=== PATIENT | female | born 1985 | race Caucasian/White ===

== ENCOUNTER 2020-08-19 21:23 | Emergency (ER) | payer OTHER, SELFPAY ==
[2020-08-19 21:31] VITALS: BP 128/87; PULSE 94; RESP 16; TEMP 35.9; O2SAT 98
--- NOTE | 2020-08-19 21:36 | ED.SKABFB ---
HPI - Skin/Abscess/Foreign Bdy General Chief complaint: Skin/Abscess/Foreign Body Stated complaint: Cyst on back for couple weeks Time Seen by Provider: 08/19/20 21:30 Source: patient Mode of arrival: ambulatory Limitations: no limitations History of Present Illness HPI narrative: A 34-year-old female comes into the emergency department tonight with complaints of a cyst on her back. Patient states that is been there for several weeks and will go away. She notes that it has been intermittently draining. Patient notes that it is exquisitely painful. She states that it does cause pain when she is lying on her back. Related Data Allergies Allergy/AdvReac Type Severity Reaction Status Date / Time alprazolam Allergy Unknown Unknown Verified 06/23/20 13:36 cefaclor Allergy Unknown Nausea Verified 06/23/20 13:36 lincomycin Allergy Unknown Didn't work Verified 06/23/20 13:36 nicardipine [Cardene] Allergy Unknown Didn't work Verified 06/23/20 13:36 codeine AdvReac Unknown Nausea and Verified 06/23/20 13:36 Vomiting Review of Systems Review of Systems: Narrative: CONSTITUTIONAL: Denies fever, chills, or sweats. EYES: Denies visual changes, redness, or discharge. ENT: Denies rhinorrhea, congestion, sore throat, or otalgia. CARDIOVASCULAR: Denies chest pain, palpitations, or edema. RESPIRATORY: Denies cough or dyspnea. GASTROINTESTINAL: Denies abdominal pain, nausea, vomiting, or diarrhea. GENITOURINARY: Denies dysuria or hematuria. SKIN: Denies rash or itching. MUSCULOSKELETAL: Denies back pain, joint pain, or myalgia. NEUROLOGIC: Denies headache, numbness, dizziness, or weakness. PSYCHIATRIC: Denies anxiety or depression. [facility] Past Medical History Medical History (Updated 08/19/20 @ 21:56 by Toro Mejia DO) Ankle fracture, left Anxiety Arm fracture Asthma as a child Depression Fingers fractured GERD (gastroesophageal reflux disease) Ovarian cyst Pseudoseizure Surgical History Surgical History History of hysterectomy Hx of cholecystectomy Family History Family History Mother Depression Hypertension Father Hypertension Grandparent Family history of cardiovascular disease Diabetes mellitus Family history of malignant neoplasm of breast Other Family history of allergic disorder Social History Social History Smoking status: Current every day smoker Alcohol intake: never Exam Narrative: Exam Narrative: GENERAL: Well-appearing, well-nourished, and in no acute distress. HEAD: Normocephalic, atraumatic. EYES: PERRLA and EOMI. ENT: Nares clear, no rhinorrhea or epistaxis. Mucous membranes moist. Oropharynx without tonsillar hypertrophy exudate or other lesions. Bilateral TMs pearly hartley nonbulging NECK: Supple. No adenopathy or masses. No carotid bruits or JVD CHEST: Clear to auscultation. No respiratory distress. No wheezes rales or rhonchi HEART: Regular rate and rhythm. No murmur heard. Normal peripheral pulses. ABDOMEN: Soft, nontender, nondistended, normal active bowel sounds. EXTREMITIES: Normal range of motion. No edema. SKIN: Warm, dry, no rash. 4 cm lesion on the mid back, fluctuant and indurated around the periphery. NEURO: No focal deficits. Alert and oriented x3. PSYCH: Normal mood and affect. Course Vital Signs Vital signs: Vital Signs Temperature 35.9 C L 08/19/20 21:31 Pulse Rate 94 08/19/20 21:31 Respiratory Rate 16 08/19/20 21:31 Blood Pressure 128/87 08/19/20 21:31 Pulse Oximetry 98 08/19/20 21:31 Temperature 35.9 C L 08/19/20 21:31 Pulse Rate 94 08/19/20 21:31 Respiratory Rate 16 08/19/20 21:31 Blood Pressure 128/87 08/19/20 21:31 Pulse Oximetry 98 08/19/20 21:31 Procedures Abscess I/D back: Side (if applicable): left Local Anesthetic: lidocaine 1% and w
== END 2020-08-19 21:59 | disposition home or self-care (01) ==
PROVIDERS: Emergency Provider Emergency Medicine; PCP Family Medicine
DX: L02.212 Cutaneous abscess of back [any part, except buttock and flank] (principal); J45.909 Unspecified asthma, uncomplicated; K21.9 Gastro-esophageal reflux disease without esophagitis; F17.200 Nicotine dependence, unspecified, uncomplicated
CPT/HCPCS: 10061; 99283; A9270

== ENCOUNTER 2020-10-27 15:47 | Emergency (ER) | payer OTHER, SELFPAY ==
[2020-10-27 15:57] VITALS: BP 108/62; PULSE 86; RESP 16; TEMP 36.5; O2SAT 99
--- NOTE | 2020-10-27 16:05 | ED.URI ---
HPI - URI/Sore Throat General Chief Complaint: Upper Respiratory Infection Stated Complaint: sore throat/weakness Time Seen by Provider: 10/27/20 16:05 Source: patient and RN notes reviewed Mode of arrival: ambulatory Limitations: no limitations History of Present Illness HPI Narrative: 35-year-old female presents to the [facility] with complaints of sore throat, body aches and nasal congestion. Reports that she has had a fever of 101. Symptoms for approximately 2 weeks intermittently. States that at her work she was tested for Covid last week which was negative. Has not taken anything for symptoms. Related Data Home Medications Medication Instructions Recorded Confirmed citalopram 1 mg PO DAILY 10/27/20 10/27/20 hydroxyzine HCl 1 mg PO DAILY 10/27/20 10/27/20 omeprazole 1 mg PO DAILY 10/27/20 10/27/20 Allergies Allergy/AdvReac Type Severity Reaction Status Date / Time alprazolam Allergy Unknown Unknown Verified 06/23/20 13:36 cefaclor Allergy Unknown Nausea Verified 06/23/20 13:36 lincomycin Allergy Unknown Didn't work Verified 06/23/20 13:36 nicardipine [Cardene] Allergy Unknown Didn't work Verified 06/23/20 13:36 codeine AdvReac Unknown Nausea and Verified 06/23/20 13:36 Vomiting Review of Systems Review of Systems: All systems reviewed & are unremarkable except as noted in HPI and below Constitutional: Constitutional: Reports as per HPI, Reports fatigue and Reports fever(s) Eyes: Eyes: Reports no additional eye complaints ENT: Denies dizziness, Reports nasal congestion and Reports sore throat Cardiovascular: Cardiovascular: Reports no additional cardiovascular complaints and Denies chest pain Respiratory: Respiratory: Reports no additional respiratory complaints, Denies cough, Denies dyspnea and Denies wheezing Gastrointestinal: Gastrointestinal: Reports no additional gastrointestinal complaints, Denies abdominal pain, Denies diarrhea, Denies nausea and Denies vomiting Genitourinary: Genitourinary: Reports no additional female genitourinary complaints Musculoskeletal: Musculoskeletal: Reports no additional musculoskeletal complaints Integumentary/Breasts: Skin/Breast: Reports system reviewed and no additional complaints, except as docu Neurologic: Reports system reviewed and no additional complaints, except as documented, Denies dizziness and Denies headache(s) Psychiatric: Psychiatric: Reports no additional psychiatric complaints PMFSH Past Medical History Medical History (Updated 10/28/20 @ 15:01 by Latesha Lozoya) Ankle fracture, left Anxiety Arm fracture Asthma as a child Depression Fingers fractured GERD (gastroesophageal reflux disease) Ovarian cyst Pseudoseizure Surgical History Surgical History History of hysterectomy Hx of cholecystectomy Family History Family History Mother Depression Hypertension Father Hypertension Grandparent Family history of cardiovascular disease Diabetes mellitus Family history of malignant neoplasm of breast Other Family history of allergic disorder Social History Social History Smoking status: Current every day smoker Alcohol intake: never Gender identity (if verbalized by the patient): Female Comments At the time of my signature, I reviewed and agree with the nursing past medical, surgical, social, and family history. There is no relevant family history pertinent to the patient complaint. Exam Const: General: healthy appearing, no acute distress and alert Nutritional Appearance: well nourished and obese Orientation/consciousness: patient oriented x3 HENMT: Head: normal to inspection Ears: external ears normal and TM's normal bilaterally General nose exam: Normal external nose present, Normal nares present and Nasal discharge present Face and sinus: normal facial exam and si
[2020-10-28 16:10] LABS: SARS-CoV-2 RNA PCR Negative
== END 2020-10-27 17:00 | disposition home or self-care (01) ==
PROVIDERS: Emergency Provider Nurse Practitioner; PCP Family Medicine
DX: J06.9 Acute upper respiratory infection, unspecified (principal); Z20.822 Contact with and (suspected) exposure to COVID-19; F17.200 Nicotine dependence, unspecified, uncomplicated; K21.9 Gastro-esophageal reflux disease without esophagitis; F41.9 Anxiety disorder, unspecified; F32.9 Major depressive disorder, single episode, unspecified
CPT/HCPCS: 87081; 87880; 99213; C9803; G0463; U0003; U0005

== ENCOUNTER 2021-02-24 10:08 | Emergency (ER) | payer OTHER, SELFPAY ==
--- NOTE | 2021-02-24 10:17 | ED.GENADULT ---
HPI - General Adult General Chief complaint: Upper Respiratory Infection Stated complaint: exposure Source: patient and RN notes reviewed Mode of arrival: ambulatory History of Present Illness HPI narrative: This is a family who presented to urgent care for Covid testing due to exposure to covid . No signs and symptoms of Covid noted. The patient denies SOB, CP, palpitation, extremity numbness, lightheadedness, dizziness, constipation, diarrhea, chills, or fever. They have been given a prescription to get a Covid pcr Order for Covid PCR given Related Data Home Medications Medication Instructions Recorded Confirmed omeprazole 1 mg PO DAILY 10/27/20 02/24/21 Allergies Allergy/AdvReac Type Severity Reaction Status Date / Time alprazolam Allergy Unknown Unknown Verified 02/24/21 10:40 cefaclor Allergy Unknown Nausea Verified 02/24/21 10:40 lincomycin Allergy Unknown Didn't work Verified 02/24/21 10:40 nicardipine [Cardene] Allergy Unknown Didn't work Verified 02/24/21 10:40 codeine AdvReac Unknown Nausea and Verified 02/24/21 10:40 Vomiting Review of Systems Review of Systems: A 14 organ system Review of Systems was performed and pertinent positives included in the HPI, otherwise remaining ROS is negative. [facility] Past Medical History Medical History Ankle fracture, left Anxiety Arm fracture Asthma as a child Depression Fingers fractured GERD (gastroesophageal reflux disease) Ovarian cyst Pseudoseizure Surgical History Surgical History History of hysterectomy Hx of cholecystectomy Family History Family History Mother Depression Hypertension Father Hypertension Grandparent Family history of cardiovascular disease Diabetes mellitus Family history of malignant neoplasm of breast Other Family history of allergic disorder Social History Social History Smoking status: Current every day smoker Alcohol intake: never Gender identity (if verbalized by the patient): Female Exam Narrative: GENERAL: This is a well-nourished, well-developed patient, in no apparent distress. HEAD: normocephalic, atraumatic. EYES: PERRL. Sclera clear/white. Vision is grossly intact. EARS: External ears normal, auditory canals clear and without drainage, TMs normal without perforation. Hearing grossly intact. NOSE: External nose normal with no obvious nasal discharge, nares without redness, no rhinorrhea. THROAT: Mucous membranes moist, posterior pharynx clear. NECK: Neck supple, non-tender without lymphadenopathy, masses or thyromegaly. CARDIOVASCULAR: Regular rate and rhythm without murmurs, gallops, or rubs. RESPIRATORY: Clear to auscultation. Breath sounds equal bilaterally. No wheezes, rales, or rhonchi. GASTROINTESTINAL: Abdomen soft, non-tender, nondistended. Bowel sounds are active. No hepato-splenomegaly, or palpable masses. No guarding. SKIN: warm, intact with no suspicious lesions or rash, good texture and turgor. NEURO: awake, alert, and oriented to person, place and time. There were no obvious focal neurologic abnormalities. Steady gait EXTREMITIES: Normal range of motion. No edema. No calf tenderness. Negative Homans sign bilaterally. BACK: Nontender without deformity or crepitance. No flank tenderness. Course Course Emergency Course: Order Covid testing at [place] drive-through Vital Signs Vital signs: Vital Signs Temperature 97.5 F L 02/24/21 10:35 Pulse Rate 81 02/24/21 10:35 Respiratory Rate 16 02/24/21 10:35 Blood Pressure 115/73 02/24/21 10:35 Pulse Oximetry 99 02/24/21 10:35 Temperature 97.5 F L 02/24/21 10:35 Pulse Rate 81 02/24/21 10:35 Respiratory Rate 16 02/24/21 10:35 Blood Pressure 115/73 02/24/21 10:35 Pulse Oximetry
[2021-02-24 10:35] VITALS: BP 115/73; PULSE 81; RESP 16; TEMP 36.4; O2SAT 99
== END 2021-02-24 11:03 | disposition home or self-care (01) ==
PROVIDERS: Emergency Provider Nurse Practitioner
DX: Z20.822 Contact with and (suspected) exposure to COVID-19 (principal); K21.9 Gastro-esophageal reflux disease without esophagitis; F17.200 Nicotine dependence, unspecified, uncomplicated
CPT/HCPCS: 99211; G0463

== ENCOUNTER 2021-04-21 16:35 | Emergency (ER) | payer OTHER, SELFPAY ==
--- NOTE | 2021-04-21 17:13 | PC.NURSE ---
PT LEFT PRIOR TO TRIAGE. STATES I'M GOING TO URGENT CARE. IT'S JUST A RASH
== END 2021-04-21 17:20 | disposition left against medical advice (07) ==
PROVIDERS: PCP Family Medicine
DX: Z53.21 Procedure and treatment not carried out due to patient leaving prior to being seen by health care provider (principal)
CPT/HCPCS: 99199

== ENCOUNTER 2021-04-21 17:29 | Emergency (ER) | payer OTHER, SELFPAY ==
[2021-04-21 17:38] VITALS: BP 128/85; PULSE 75; RESP 16; TEMP 36.3; O2SAT 100
[2021-04-21 17:45] VITALS: BP 128/85; PULSE 75; RESP 16; TEMP 36.3; O2SAT 100
--- NOTE | 2021-04-21 17:55 | ED.SKABFB ---
HPI - Skin/Abscess/Foreign Bdy General Chief complaint: Skin/Abscess/Foreign Body Stated complaint: R LEG SWELLING/RASH Time Seen by Provider: 04/21/21 18:06 Source: patient and RN notes reviewed Mode of arrival: ambulatory Limitations: no limitations History of Present Illness HPI narrative: 35-year-old female presents with concern for rash on her ankle. Reports she noticed the rash today after work. Reports it slightly burning, is not painful. Reports she has had this rash in the same area before and on the other ankle in the similar spot. Reports when she works on her feet her lower legs swell and then sometimes she gets this rash. Reports her legs were swollen earlier and this bleeding has improved. MD complaint: rash Related Data Home Medications Medication Instructions Recorded Confirmed omeprazole 1 mg PO DAILY 10/27/20 04/21/21 Allergies Allergy/AdvReac Type Severity Reaction Status Date / Time alprazolam Allergy Unknown Unknown Verified 04/21/21 17:45 cefaclor Allergy Unknown Nausea Verified 04/21/21 17:45 lincomycin Allergy Unknown Didn't work Verified 04/21/21 17:45 nicardipine [Cardene] Allergy Unknown Didn't work Verified 04/21/21 17:45 codeine AdvReac Unknown Nausea and Verified 04/21/21 17:45 Vomiting Review of Systems Review of Systems: CONSTITUTIONAL: Denies malaise, chills, sweats, or fever. ENT: Denies swollen lips, swollen tongue CARDIOVASCULAR: Denies chest pain, palpitations RESPIRATORY: Denies dyspnea. SKIN: Reports burning rash on the right lower anterior ankle MUSCULOSKELETAL: Denies myalgia. All systems reviewed & are unremarkable except as noted in HPI and below PMFSH Past Medical History Medical History (Updated 04/21/21 @ 18:05 by Latesha Nguyen NP) Ankle fracture, left Anxiety Arm fracture Asthma as a child Depression Fingers fractured GERD (gastroesophageal reflux disease) Ovarian cyst Pseudoseizure Surgical History Surgical History History of hysterectomy Hx of cholecystectomy Family History Family History Mother Depression Hypertension Father Hypertension Grandparent Family history of cardiovascular disease Diabetes mellitus Family history of malignant neoplasm of breast Other Family history of allergic disorder Social History Social History (Reviewed 03/28/21 @ 12:21 by Nicky Monroy [facility]) Alcohol intake: never Gender identity (if verbalized by the patient): Female Comments At time of signature, agree with nursing past medical, surgical, social and family history. There is no relevant family history pertinent to the presenting complaint Exam Narrative: GENERAL: Well-appearing, well-nourished, and in no acute distress. HEAD: Normocephalic, atraumatic. EYES: PERRLA, conjunctivae clear ENT: Mucous membranes moist. NECK: Supple. No lymphadenopathy CHEST: Clear to auscultation. No respiratory distress. HEART: Regular rate and rhythm. SKIN: Warm, dry. Patch of erythematous papules with well demarcated line at the top of the sock line noted to the right anterior ankle NEURO: Alert and oriented x3. PSYCH: Normal mood and affect Course Course Emergency Course: Patient is aware of diagnosis, understands and agrees to treatment plan. Anticipatory guidance given. Patient agrees to follow-up as directed and is aware of reasons to seek care at the emergency department. Portions of this record may have been created with voice recognition software Vital Signs Vital signs: Vital Signs Temperature 97.3 F L 04/21/21 17:38 Pulse Rate 75 04/21/21 17:38 Respiratory Rate 16 04/21/21 17:38 Blood Pressure 128/85 04/21/21 17:38 Pulse Oximetry 100 04/21/21 17:38 Temperature 97.3 F L 04/21/21 17:45 Pulse Rate 75 04/21/21 17:45 Respiratory Rate 16 04/21/21 17:45 Blood Pressure 128/85 04/21/21 17:45
== END 2021-04-21 18:06 | disposition home or self-care (01) ==
PROVIDERS: Emergency Provider Nurse Practitioner; PCP Family Medicine
DX: L25.9 Unspecified contact dermatitis, unspecified cause (principal); K21.9 Gastro-esophageal reflux disease without esophagitis
CPT/HCPCS: 99213; G0463

== ENCOUNTER 2021-12-21 19:00 | Emergency (ER) | payer OTHER, SELFPAY ==
[2021-12-21 19:03] VITALS: BP 124/73; PULSE 110; RESP 20; TEMP 37.4; O2SAT 98
--- NOTE | 2021-12-21 19:12 | PC.NURSE ---
patient left waiting room stating wait is too long and she plans to go somewhere else
== END 2021-12-21 19:12 | disposition left against medical advice (07) ==
PROVIDERS: PCP Family Medicine
DX: J02.9 Acute pharyngitis, unspecified (principal)
CPT/HCPCS: 99199

== ENCOUNTER 2021-12-21 19:36 | Emergency (ER) | payer OTHER, SELFPAY ==
[2021-12-21 19:46] VITALS: BP 137/98; PULSE 102; RESP 16; TEMP 37.7; O2SAT 100
--- NOTE | 2021-12-21 19:50 | ED.URI ---
HPI - URI/Sore Throat General Chief Complaint: Upper Respiratory Infection Stated Complaint: body aches /chills/sore throat Time Seen by Provider: 12/21/21 19:50 Source: patient Mode of arrival: ambulatory Limitations: no limitations History of Present Illness HPI Narrative: 36-year-old female presents with complaint of body aches, chills, fever, headache, fatigue. Symptoms started this morning. Taking [id number] medications to treat her symptoms. Reports chills have been constant, nothing makes them better. Not vaccinated for COVID. No COVID contacts. Denies chest pain and shortness of breath. All systems reviewed and negative except as noted above. Related Data Allergies Allergy/AdvReac Type Severity Reaction Status Date / Time alprazolam Allergy Unknown Unknown Verified 11/25/21 15:18 cefaclor Allergy Unknown Nausea Verified 11/25/21 15:18 lincomycin Allergy Unknown Didn't work Verified 11/25/21 15:18 nicardipine [Cardene] Allergy Unknown Didn't work Verified 11/25/21 15:18 codeine AdvReac Unknown Nausea and Verified 11/25/21 15:18 Vomiting Review of Systems Review of Systems: CONSTITUTIONAL: Reports fever, chills, or sweats. Reports fatigue EYES: Denies visual changes, redness, or discharge. ENT: Denies rhinorrhea, congestion, sore throat, or otalgia. CARDIOVASCULAR: Denies chest pain, palpitations, or edema. RESPIRATORY: Denies cough or dyspnea. GASTROINTESTINAL: Denies abdominal pain, nausea, vomiting, or diarrhea. GENITOURINARY: Denies dysuria or hematuria. SKIN: Denies rash or itching. MUSCULOSKELETAL: Denies back pain, joint pain. Reports myalgia. NEUROLOGIC: Reports headache. Denies numbness, or weakness. PSYCHIATRIC: Denies anxiety or depression. All other systems reviewed are negative, except as documented in HPI. [facility] Past Medical History Medical History (Updated 12/21/21 @ 20:00 by Jael Denise NP) Ankle fracture, left Anxiety Arm fracture Asthma as a child Depression Fingers fractured GERD (gastroesophageal reflux disease) Ovarian cyst Pseudoseizure Surgical History Surgical History History of hysterectomy Hx of cholecystectomy Family History Family History Mother Depression Hypertension Father Hypertension Grandparent Family history of cardiovascular disease Diabetes mellitus Family history of malignant neoplasm of breast Other Family history of allergic disorder Social History Social History (Updated 11/25/21 @ 15:18 by CHANO Jansen) Smoking status: Current every day smoker Alcohol intake: never Gender identity (if verbalized by the patient): Female Exam Narrative: GENERAL: This is a well-nourished, well-developed patient. Patient is ill-appearing but no distress. HEAD: normocephalic, atraumatic. EYES: PERRL. Sclera clear/white. Vision is grossly intact. EARS: External ears normal, auditory canals clear and without drainage, TMs normal without perforation. Hearing grossly intact. NOSE: External nose normal with no obvious nasal discharge, nares without redness, no rhinorrhea. THROAT: Mucous membranes moist, posterior pharynx clear. NECK: Neck supple, non-tender without lymphadenopathy, masses or thyromegaly. CARDIOVASCULAR: Regular rate and rhythm without murmurs, gallops, or rubs. RESPIRATORY: Clear to auscultation. Breath sounds equal bilaterally. No wheezes, rales, or rhonchi. SKIN: warm, Dry, intact with no suspicious lesions or rash, good texture and turgor. NEURO: awake, alert, and oriented to person, place and time. There were no obvious focal neurologic abnormalities. EXTREMITIES: No joint tenderness, effusion, or edema noted. Course Course Level of Care: Express Care Visit Vital Signs Vital signs: Vital Signs Temperature 37.7 C H 12/21/21 19:46 Pulse Rate 102 H 12/21/21 19:46 Respiratory Rate 1
== END 2021-12-21 20:06 | disposition home or self-care (01) ==
PROVIDERS: Emergency Provider Nurse Practitioner Family
DX: U07.1 COVID-19 (principal); K21.9 Gastro-esophageal reflux disease without esophagitis; F41.9 Anxiety disorder, unspecified; F32.A Depression, unspecified
CPT/HCPCS: 87081; 87426; 87804; 87880; 99213; C9803; G0463

== ENCOUNTER 2021-12-28 15:58 | Emergency (ER) | payer OTHER, SELFPAY | END 2021-12-28 16:30 | disposition left against medical advice (07) | LOC: EXPCOLL 16:00 | PROVIDERS: Emergency Provider Registered Nurse; PCP Family Medicine | DX: Z53.21 Procedure and treatment not carried out due to patient leaving prior to being seen by health care provider (principal) | CPT/HCPCS: 99199 ==

== ENCOUNTER 2022-03-24 10:53 | Emergency (ER) | payer OTHER, SELFPAY ==
[2022-03-24 11:00] VITALS: BP 121/67; PULSE 80; RESP 16; TEMP 36.5; O2SAT 98
--- NOTE | 2022-03-24 11:09 | ED.NAVMDI ---
HPI - Nausea/Vomiting/Diarrhea General Chief complaint: Nausea/Vomiting/Diarrhea Stated complaint: diarrhea Time Seen by Provider: 03/24/22 11:10 Source: patient and RN notes reviewed Mode of arrival: ambulatory Limitations: no limitations History of Present Illness HPI Narrative: 36-year-old female presents to the [facility] with complaints of diarrhea since yesterday. Multiple episodes yesterday. Boyfriend has the same symptoms. Works at [employer] had eaten something from [employer] prior to this starting. Requesting a work note Related Data Allergies Allergy/AdvReac Type Severity Reaction Status Date / Time alprazolam Allergy Unknown Unknown Verified 03/24/22 11:12 cefaclor Allergy Unknown Nausea Verified 03/24/22 11:12 lincomycin Allergy Unknown Didn't work Verified 03/24/22 11:12 nicardipine [Cardene] Allergy Unknown Didn't work Verified 03/24/22 11:12 codeine AdvReac Unknown Nausea and Verified 03/24/22 11:12 Vomiting Review of Systems Review of Systems: All systems reviewed & are unremarkable except as noted in HPI and below Constitutional: Constitutional: Reports no additional constitutional complaints, Denies chills and Denies fever(s) Eyes: Eyes: Reports no additional eye complaints ENT: Reports system reviewed and no additional complaints, except as documented Cardiovascular: Cardiovascular: Reports no additional cardiovascular complaints Respiratory: Respiratory: Reports no additional respiratory complaints Gastrointestinal: Gastrointestinal: Reports as per HPI, Reports diarrhea, Denies nausea and Denies vomiting Musculoskeletal: Musculoskeletal: Reports no additional musculoskeletal complaints Integumentary/Breasts: Skin/Breast: Reports system reviewed and no additional complaints, except as docu Neurologic: Reports system reviewed and no additional complaints, except as documented Psychiatric: Psychiatric: Reports no additional psychiatric complaints Allergic/Immunologic: Allergic/Immunologic: Reports no additional allergic/immunologic complaints [facility] Past Medical History Medical History Ankle fracture, left Anxiety Arm fracture Asthma as a child Depression Fingers fractured GERD (gastroesophageal reflux disease) Ovarian cyst Pseudoseizure Surgical History Surgical History History of hysterectomy Hx of cholecystectomy Family History Family History Mother Depression Hypertension Father Hypertension Grandparent Family history of cardiovascular disease Diabetes mellitus Family history of malignant neoplasm of breast Other Family history of allergic disorder Social History Social History Smoking status: Current every day smoker Alcohol intake: never Gender identity (if verbalized by the patient): Female Comments At the time of my signature, I reviewed and agree with the nursing past medical, surgical, social, and family history. There is no relevant family history pertinent to the patient complaint. Exam Const: General: healthy appearing, no acute distress and alert Nutritional Appearance: well nourished and obese Orientation/consciousness: patient oriented x3 Limitations: no limitations HENMT: Head: normal to inspection Ears: external ears normal General nose exam: Normal external nose present Face and sinus: normal facial exam Mouth: Yes Normal oral and palatal mucosa present, Yes lip normal and Yes moist mucous membranes Throat: posterior oropharynx normal and uvula midline Eyes: General: appearance normal, both eyes and all related structures Conjunctivae: conjunctivae normal Pupils: Equal, round and reactive pupils present Neck: Neck: normal visual inspection, no lymphadenopathy and no meningeal signs Chest: Chest palpation & i
== END 2022-03-24 11:18 | disposition home or self-care (01) ==
PROVIDERS: Emergency Provider Nurse Practitioner
DX: R19.7 Diarrhea, unspecified (principal); F17.200 Nicotine dependence, unspecified, uncomplicated; K21.9 Gastro-esophageal reflux disease without esophagitis; F41.9 Anxiety disorder, unspecified; F32.A Depression, unspecified
CPT/HCPCS: 99211; G0463

== ENCOUNTER 2022-04-30 10:01 | Emergency (ER) | payer OTHER, SELFPAY ==
[2022-04-30 11:10] VITALS: BP 122/81; PULSE 79; RESP 16; TEMP 36.4; O2SAT 99
--- NOTE | 2022-04-30 11:39 | ED.URI ---
HPI - URI/Sore Throat General Chief Complaint: Upper Respiratory Infection Stated Complaint: sore throat/fever Time Seen by Provider: 04/30/22 11:36 Source: patient and RN notes reviewed Mode of arrival: ambulatory Limitations: no limitations History of Present Illness HPI Narrative: 36-year-old female presents with concern for a sore throat, cough, nasal congestion, fever, body aches for 4 days. She reports her children have similar symptoms and have tested negative for strep, flu, COVID. She reports she has been taking Tylenol, DayQuil NyQuil. She denies shortness of breath, vomiting or diarrhea MD elicited complaint: cough and sore throat Related Data Allergies Allergy/AdvReac Type Severity Reaction Status Date / Time alprazolam Allergy Unknown Unknown Verified 04/30/22 11:06 cefaclor Allergy Unknown Nausea Verified 04/30/22 11:06 lincomycin Allergy Unknown Didn't work Verified 04/30/22 11:06 nicardipine [Cardene] Allergy Unknown Didn't work Verified 04/30/22 11:06 codeine AdvReac Unknown Nausea and Verified 04/30/22 11:06 Vomiting Review of Systems Review of Systems: CONSTITUTIONAL: Reports malaise, fever. EYES: Denies visual changes, redness, or discharge. ENT: Reports rhinorrhea, congestion, sore throat. Denies sinus pain, otalgia CARDIOVASCULAR: Denies chest pain, palpitations, or edema. RESPIRATORY: Reports cough. Denies dyspnea. GASTROINTESTINAL: Denies abdominal pain, nausea, vomiting, diarrhea SKIN: Denies rash or itching. MUSCULOSKELETAL: Reports myalgia. NEUROLOGIC: Denies headache. All systems reviewed & are unremarkable except as noted in HPI and below PMFSH Past Medical History Medical History Ankle fracture, left Anxiety Arm fracture Asthma as a child Depression Fingers fractured GERD (gastroesophageal reflux disease) Ovarian cyst Pseudoseizure Surgical History Surgical History History of hysterectomy Hx of cholecystectomy Family History Family History Mother Depression Hypertension Father Hypertension Grandparent Family history of cardiovascular disease Diabetes mellitus Family history of malignant neoplasm of breast Other Family history of allergic disorder Social History Social History Smoking status: Current every day smoker Alcohol intake: never Gender identity (if verbalized by the patient): Female Comments At time of signature, agree with nursing past medical, surgical, social and family history. There is no relevant family history pertinent to the presenting complaint Exam Narrative: GENERAL: Nontoxic-appearing and in no acute distress. HEAD: Normocephalic EYES: PERRLA, conjunctivae clear ENT: Nares clear, turbinates edematous and erythematous, clear discharge. Mucous membranes moist. TM pearly hartley with dull light reflex bilaterally; no tragal tenderness. Oropharynx erythematous without lesions. Tonsils not enlarged and without exudate, no drooling, no hoarseness, no trismus, uvula midline. NECK: Supple. No lymphadenopathy CHEST: Clear to auscultation, breath sounds equal. No wheezing, rhonchi, rales, or stridor. No respiratory distress, speaks in full sentences. HEART: Regular rate and rhythm. No murmur heard. SKIN: Warm, dry, no rash. NEURO: Alert and oriented x3. PSYCH: Normal mood and affect Course Course Emergency Course: Patient is aware of diagnosis, understands and agrees to treatment plan. Anticipatory guidance given. Patient agrees to follow-up as directed and is aware of reasons to seek care at the emergency department. Portions of this record may have been created with voice recognition software Level of Care: Express Care Visit Vital Signs Vital signs: Vital Signs Temperature 97.5 F L 04/30/22 11:10 Pulse Rate
== END 2022-04-30 12:07 | disposition home or self-care (01) ==
PROVIDERS: Emergency Provider Nurse Practitioner
DX: B34.9 Viral infection, unspecified (principal); F17.200 Nicotine dependence, unspecified, uncomplicated
CPT/HCPCS: 87081; 87880; 99213; G0463

== ENCOUNTER 2022-12-01 17:47 | Emergency (ER) | payer OTHER, SELFPAY ==
--- NOTE | ~2022-12-01 | XR_ITS ---
EXAMINATION: XR foot RT min 3V DATE: 12/01/2022 18:28 INDICATION: Right foot pain TECHNIQUE: Dorsoplantar, lateral, and 2 oblique views of the right foot were obtained. COMPARISON: None. FINDINGS: No fracture, dislocation, or subluxation. The bones, soft tissues, and joint spaces are nor mal. IMPRESSION: 1. No acute osseous abnormality. Reviewed, dictated and finalized at location F.
[2022-12-01 17:52] VITALS: BP 124/83; PULSE 84; RESP 16; TEMP 36.2; O2SAT 98
--- NOTE | 2022-12-01 18:45 | ED.GENADULT ---
HPI - General Adult General Chief complaint: Extremity Injury, Lower Stated complaint: R FOOT PAIN/SWELLING Time Seen by Provider: 12/01/22 18:20 Source: patient, family, RN notes reviewed and old records reviewed Mode of arrival: ambulatory Limitations: no limitations History of Present Illness HPI narrative: 37 year old female accompanied by mother presents to express care with complaints of 2 -3 day history of pain to the top of right foot down along area above 2nd toe especially with no known injury reported. Patient is able to bear weight on her right foot without difficulty , pain is aggravated when she bends the 3nd right toe downward. Patient has strong pedal pulse to right foot with brisk capillary refill to to nail beds. foot is warm and pink. Patient does have minimal swelling to distal dorsal foot. Patient reports that she has taken some Ibuprofen for her discomfort and used ice to her right foot. MD complaint: pain to dorsal aspect of right foot Onset (ago): day(s) (2-3) Severity scale (1-10): 3 Treatments prior to arrival: NSAID and cold therapy Related Data Allergies Allergy/AdvReac Type Severity Reaction Status Date / Time alprazolam Allergy Unknown Unknown Verified 12/01/22 17:52 cefaclor Allergy Unknown Nausea Verified 12/01/22 17:52 lincomycin Allergy Unknown Didn't work Verified 12/01/22 17:52 nicardipine [Cardene] Allergy Unknown Didn't work Verified 12/01/22 17:52 codeine AdvReac Unknown Nausea and Verified 12/01/22 17:52 Vomiting Review of Systems Review of Systems: CONSTITUTIONAL: Denies fever, chills, or sweats. EYES: Denies visual changes, redness, or discharge. ENT: Denies rhinorrhea, congestion, sore throat, or otalgia. CARDIOVASCULAR: Denies chest pain, palpitations, or edema. RESPIRATORY: Denies cough or dyspnea. GASTROINTESTINAL: Denies abdominal pain, nausea, vomiting, or diarrhea. GENITOURINARY: Denies dysuria or hematuria. SKIN: Denies rash or itching. MUSCULOSKELETAL: Denies back pain, positive for right dorsal foot pain across metatarsals, or myalgia. NEUROLOGIC: Denies headache, numbness, or weakness. PSYCHIATRIC: Reports history of anxiety or depression. All systems reviewed & are unremarkable except as noted in HPI and below FOR[facility]LY [facility] Past Medical History Medical History Ankle fracture, left Anxiety Arm fracture Asthma as a child Depression Fingers fractured GERD (gastroesophageal reflux disease) Ovarian cyst Pseudoseizure Surgical History Surgical History History of hysterectomy Hx of cholecystectomy Family History Family History Mother Depression Hypertension Father Hypertension Grandparent Family history of cardiovascular disease Diabetes mellitus Family history of malignant neoplasm of breast Other Family history of allergic disorder Social History Social History Smoking status: Current every day smoker Alcohol intake: never Gender identity (if verbalized by the patient): Female Comments At time of signature, agree with nursing past medical, surgical, social and family history. There is no relevant family history pertinent to the presenting complaint Exam Narrative: GENERAL: Well-appearing, well-nourished, and in no acute distress. HEAD: Normocephalic, atraumatic. EYES: PERRLA and EOMI. ENT: Nares clear, no rhinorrhea or epistaxis. Mucous membranes moist. NECK: Supple.no lymphadenopathy CHEST: Clear to auscultation. No respiratory distress. SAO2 98% on room air HEART: Regular rate and rhythm. No murmur heard. Normal peripheral pulses. ABDOMEN: Soft, nontender, nondistended, normal active bowel sounds. EXTREMITIES: Normal range of motion. mild edema to dorsal distal right foot, increased discomfort when she points toes downwa
== END 2022-12-01 18:56 | disposition home or self-care (01) ==
PROVIDERS: Emergency Provider Registered Nurse
DX: M79.671 Pain in right foot (principal); F17.200 Nicotine dependence, unspecified, uncomplicated; K21.9 Gastro-esophageal reflux disease without esophagitis; F41.9 Anxiety disorder, unspecified; F32.A Depression, unspecified
CPT/HCPCS: 73630; 99213; G0463

== ENCOUNTER 2023-03-14 09:11 | Emergency (ER) | payer OTHER, SELFPAY ==
[2023-03-14 09:39] VITALS: BP 122/80; PULSE 76; RESP 16; TEMP 36.8; O2SAT 100
--- NOTE | 2023-03-14 10:08 | ED.URI ---
HPI - URI/Sore Throat General Chief Complaint: Upper Respiratory Infection Stated Complaint: Sinus/Fever Time Seen by Provider: 03/14/23 10:08 Source: patient and RN notes reviewed Mode of arrival: ambulatory Limitations: no limitations History of Present Illness HPI Narrative: 37-year-old female presenting for complaint of sinus pressure and congestion x3 days. endorses history of seasonal allergies for which she takes Flonase and Zyrtec. She has added NyQuil and Advil. Endorses fever up to 101 this morning. She took a negative COVID test at home yesterday. Denies sick contacts. Denies shortness of breath, wheezing, nausea vomiting or diarrhea, body aches or lethargy. MD elicited complaint: cough Related Data Allergies Allergy/AdvReac Type Severity Reaction Status Date / Time alprazolam Allergy Unknown Unknown Verified 03/14/23 09:42 cefaclor Allergy Unknown Nausea Verified 03/14/23 09:42 lincomycin Allergy Unknown Didn't work Verified 03/14/23 09:42 nicardipine [Cardene] Allergy Unknown Didn't work Verified 03/14/23 09:42 codeine AdvReac Unknown Nausea and Verified 03/14/23 09:42 Vomiting Review of Systems Review of Systems: CONSTITUTIONAL: Endorses fever EYES: Denies visual changes, redness, or discharge ENT: Reports rhinorrhea, congestion, sinus pain, Deniesotalgia, sore throat CARDIOVASCULAR: Denies chest pain, palpitations, edema RESPIRATORY: Reports cough, post nasal drainage. Denies dyspnea GASTROINTESTINAL: Denies abdominal pain, nausea, vomiting, diarrhea SKIN: Denies rash or itching MUSCULOSKELETAL: denies myalgia NEUROLOGIC: Reports headache PMFSH Past Medical History Medical History Ankle fracture, left Anxiety Arm fracture Asthma as a child Depression Fingers fractured GERD (gastroesophageal reflux disease) Ovarian cyst Pseudoseizure Surgical History Surgical History History of hysterectomy Hx of cholecystectomy Family History Family History Mother Depression Hypertension Father Hypertension Grandparent Family history of cardiovascular disease Diabetes mellitus Family history of malignant neoplasm of breast Other Family history of allergic disorder Social History Social History Smoking status: Current every day smoker Alcohol intake: never Gender identity (if verbalized by the patient): Female Exam Narrative: GENERAL: mildly Ill-appearing, nontoxic no acute distress. HEAD: Normocephalic EYES: PERRLA, conjunctivae clear ENT: Mucous membranes moist. left TM erythematous with clear effusion, scarring noted to TM. Right TM pearly hartley with dull light reflex; no tragal tenderness. Oropharynx mildly erythematous without lesions or exudate, no drooling, no hoarseness, no trismus, uvula midline. No tripod positioning, muffled voice, soft palate or pharyngeal wall bulging NECK: Supple. No lymphadenopathy CHEST: Clear to auscultation, breath sounds equal. No wheezing, rhonchi, rales, or stridor. No respiratory distress, speaks in full sentences. HEART: Regular rate and rhythm. No murmur heard. SKIN: Warm, dry, no rash. NEURO: Alert and oriented x3. PSYCH: Normal mood and affect Course Course Emergency Course: Patient is aware of diagnosis, understands and agrees to treatment plan. Anticipatory guidance given. Patient agrees to follow-up as directed and is aware of reasons to seek care at the emergency department. Portions of this record may have been created with voice recognition software Level of Care: Express Care Visit Vital Signs Vital signs: Vital Signs Temperature 98.2 F 03/14/23 09:39 Pulse Rate 76 03/14/23 09:39 Respiratory Rate 16 03/14/23 09:39 Blood Pressure 122/80 03/14/23 09:39 Pulse Oximetry
== END 2023-03-14 10:23 | disposition home or self-care (01) ==
PROVIDERS: Emergency Provider Nurse Practitioner Family; PCP Emergency Medicine
DX: J06.9 Acute upper respiratory infection, unspecified (principal); H65.02 Acute serous otitis media, left ear; F17.200 Nicotine dependence, unspecified, uncomplicated; K21.9 Gastro-esophageal reflux disease without esophagitis; F41.9 Anxiety disorder, unspecified; F32.A Depression, unspecified
CPT/HCPCS: 99213; G0463

== ENCOUNTER 2023-09-14 10:46 | Emergency (ER) | payer OTHER, SELFPAY ==
[2023-09-14 10:48] VITALS: PULSE 72; RESP 20; O2SAT 97
[2023-09-14 11:00] VITALS: BP 125/81; PULSE 77; RESP 18; TEMP 36.4; O2SAT 98
[2023-09-14 11:02] VITALS: BP 125/81; PULSE 77; RESP 18; TEMP 36.4; O2SAT 98
--- NOTE | 2023-09-14 11:19 | ED.GENADULT ---
HPI - General Adult General Chief complaint: Shortness of Breath/Dyspnea Stated complaint: wheezing difficulty breathing Time Seen by Provider: 09/14/23 11:02 Source: patient, family (boyfriend) and RN notes reviewed Mode of arrival: ambulatory Limitations: no limitations History of Present Illness HPI narrative: Patient presents today complaining wheezing, congestion, cough, itchy eyes. Patient woke up from sleeping around 230 this morning with the symptoms. She was sleeping at her boyfriend's house. Patient had asthma as a child, but has not had any issues with asthma in many years. Symptoms improved once leaving the house. Boyfriend states he had bought some cheap robert litter that has sawdust in it and has not every purchased this before. They believe this may have triggered patient's symptoms. Patient does take Zyrtec daily for seasonal allergies, and did take it this morning. Denies any recent sick symptoms. Related Data Home Medications Medication Instructions Recorded Confirmed cetirizine 10 mg tablet (Zyrtec) 10 mg PO DAILY 09/14/23 09/14/23 Allergies Allergy/AdvReac Type Severity Reaction Status Date / Time alprazolam AdvReac Intermediate Anxiety Verified 09/14/23 11:20 cefaclor AdvReac Intermediate Nausea Verified 09/14/23 11:02 codeine AdvReac Intermediate Nausea and Verified 09/14/23 11:02 Vomiting lincomycin AdvReac Mild Didn't work Verified 09/14/23 11:02 nicardipine [Cardene] AdvReac Mild Didn't work Verified 09/14/23 11:02 Review of Systems Review of Systems: CONSTITUTIONAL: Denies body aches, fever, chills, or sweats. EYES: Denies visual changes, redness, or discharge.+ itchy eyes ENT: Denies rhinorrhea, sore throat, or otalgia.+ and congestion CARDIOVASCULAR: Denies chest pain, palpitations, or edema. RESPIRATORY:+ cough, wheezing, shortness of breath. GASTROINTESTINAL: Denies abdominal pain, nausea, vomiting, or diarrhea. GENITOURINARY: Denies dysuria or hematuria. SKIN: Denies rash, itching, or wounds. MUSCULOSKELETAL: Denies back pain, joint pain, or myalgia. NEUROLOGIC: Denies headache, numbness, tingling, or weakness. PSYCH: Denies depression or anxiety. PMFSH Past Medical History Medical History Ankle fracture, left Anxiety Arm fracture Asthma as a child Depression Fingers fractured GERD (gastroesophageal reflux disease) Ovarian cyst Pseudoseizure Surgical History Surgical History History of hysterectomy Hx of cholecystectomy Family History Family History Mother Depression Hypertension Father Hypertension Grandparent Family history of cardiovascular disease Diabetes mellitus Family history of malignant neoplasm of breast Other Family history of allergic disorder Social History Social History Smoking status: Current every day smoker Alcohol intake: never Gender identity (if verbalized by the patient): Female Comments At time of signature, I have reviewed and agree with nursing past medical, surgical, social and family history unless otherwise noted. Please see nursing chart for further information. There is no relevant family history pertinent to the presenting complaint Exam Narrative: GENERAL: Well-appearing, well-nourished, and in no acute distress. HEAD: Normocephalic, atraumatic. EYES: EOMI. No redness or drainage. Conjunctivae normal. ENT: Mucous membranes pink and moist. Nares clear. No rhinorrhea. TMs normal bilaterally. Throat normal. Uvula midline. NECK: Normal AROM. Supple. No lymphadenopathy. CHEST: No respiratory distress. Inspiratory and expiratory wheezing. HEART: Regular rate and rhythm. No murmur appreciated. EXTREMITIES: Normal range of motion. No edema. SKIN: Warm, dry,
[2023-09-14] MEDS: IPRATROPIUM BR 0.02% INH SOLN 0.5 MG/2.5 ML VIAL INHALATION (11:36)
[2023-09-14] MEDS: ALBUTEROL SULFATE NEB 2.5 MG/3 ML INH INHALATION (11:36)
== END 2023-09-14 12:19 | disposition home or self-care (01) ==
PROVIDERS: Emergency Provider Nurse Practitioner; PCP Emergency Medicine
DX: T78.40XA Allergy, unspecified, initial encounter (principal); K21.9 Gastro-esophageal reflux disease without esophagitis; F17.200 Nicotine dependence, unspecified, uncomplicated
CPT/HCPCS: 94640; 99213; G0463

== ENCOUNTER 2023-11-06 11:30 | Outpatient (CLI) | payer OTHER, SELFPAY ==
[2023-11-06 18:41] LABS: Basophils Absolute Auto 0.1 K/mm3 (0.0-0.1); Basophils Percent Auto 1.3 % (0.2-1.2); Eosinophils Absolute Auto 0.3 K/mm3 (0-0.3); Eosinophils Percent Auto 2.7 % (0-4.4); Hematocrit 44.2 % (37.0-47.0); Hemoglobin 14.9 g/dL (12.0-15.0); Immature Granulocyte Absolute 0.02 K/mm3 (0.00-0.031); Immature Granulocyte Percent A 0.2 % (0-0.5); Lymphocytes Absolute Auto 3.24 K/mm3 (0.9-3.2); Lymphocytes Percent Auto 30.9 % (18.3-44.2); Mean Corpuscular HGB Conc 33.7 g/dl (32-36); Mean Corpuscular Hemoglobin 28.8 pg (26-34); Mean Corpuscular Volume 85.3 fl (80-100); Mean Platelet Volume 9.4 fl (7.4-10.4); Monocytes Absolute Auto 0.6 K/mm3 (0.1-0.6); Monocytes Percent Auto 5.7 % (2.6-8.5); Neutrophils Absolute Auto 6.2 K/mm3 (1.3-6.7); Neutrophils Percent Auto 59.2 % (45.5-73.1); Platelet Count Result 323 k/mm3 (150-375); Red Blood Count 5.18 M/mm3 (4.2-5.4); Red Cell Distribution Width 11.9 % (11.5-14.5); White Blood Count 10.5 K/mm3 (4.5-10.0)
[2023-11-06 20:48] LABS: Alanine Aminotransferase 24 U/L (6-35); Albumin Level 4.3 g/dL (3.5-5.1); Alkaline Phosphatase 97 U/L (38-126); Anion Gap 5 mmol/L (4-12); Aspartate Amino Transferase 28 U/L (14-36); Bilirubin,Total 0.8 mg/dL (0.2-1.3); Blood Urea Nitrogen 16 mg/dL (7-17); Calcium 9.4 mg/dL (8.4-10.2); Carbon Dioxide 24 mmol/L (22-30); Chloride 107 mmol/L (98-107); Cholesterol 243 mg/dL (0-200); Estimated Glomerular Filt Rate > 60; Glucose 87 mg/dL (65-110); HDL Direct 36 mg/dL; Potassium 4.2 mmol/L (3.4-5.0); Sodium 136 mmol/L (137-145); Triglycerides 175 mg/dL (<150)
[2023-11-06 20:59] LABS: LDL Cholesterol Direct 163 mg/dL
== END 2023-11-06 11:31 | disposition home or self-care (01) ==
LOC: ANHGOSHLAB 11:32
PROVIDERS: PCP Emergency Medicine; Visit Provider Nurse Practitioner Family
DX: F41.9 Anxiety disorder, unspecified (principal); F17.210 Nicotine dependence, cigarettes, uncomplicated; K21.9 Gastro-esophageal reflux disease without esophagitis; E55.9 Vitamin D deficiency, unspecified
CPT/HCPCS: 36415; 80053; 80061; 82306; 84443; 85025

== ENCOUNTER 2024-02-22 13:24 | Emergency (ER) | payer OTHER, SELFPAY ==
[2024-02-22 13:43] VITALS: BP 143/93; PULSE 113; RESP 20; TEMP 38.4; O2SAT 98
--- NOTE | 2024-02-22 14:12 | ED.URI ---
HPI - URI/Sore Throat General Chief Complaint: Upper Respiratory Infection Stated Complaint: fever,chills,sore throat,bodyaches Time Seen by Provider: 02/22/24 14:12 Source: patient, RN notes reviewed and old records reviewed Mode of arrival: ambulatory Limitations: no limitations History of Present Illness HPI Narrative: Patient presents with complaints of fever, chills, sore throat, body aches that began at 3:00 a.m. today. She has not taken any medication for her symptoms. She is febrile on arrival. Her significant other is with her, began with similar symptoms, only no fever. She reports many sick contacts, some with strep. She does report that sore throat is the worst of her symptoms today Related Data Home Medications Medication Instructions Recorded Confirmed cetirizine 10 mg tablet (Zyrtec) 10 mg PO DAILY 09/14/23 02/22/24 Allergies Allergy/AdvReac Type Severity Reaction Status Date / Time alprazolam AdvReac Intermediate Anxiety Verified 02/22/24 13:50 cefaclor AdvReac Intermediate Nausea Verified 02/22/24 13:50 codeine AdvReac Intermediate Nausea and Verified 02/22/24 13:50 Vomiting lincomycin AdvReac Mild Didn't work Verified 02/22/24 13:50 nicardipine [Cardene] AdvReac Mild Didn't work Verified 02/22/24 13:50 Review of Systems Review of Systems: All systems reviewed & are unremarkable except as noted in HPI and below Constitutional: Constitutional: Reports as per HPI, Reports no additional constitutional complaints, Reports body ache(s), Reports chills, Reports fever(s) and Reports headache(s) ENT: Reports system reviewed and no additional complaints, except as documented, Reports as per HPI, Reports nasal congestion, Reports nasal discharge and Reports sore throat Cardiovascular: Cardiovascular: Reports as per HPI and Reports no additional cardiovascular complaints Respiratory: Respiratory: Reports as per HPI and Reports no additional respiratory complaints Gastrointestinal: Gastrointestinal: Reports no additional gastrointestinal complaints PMFSH Past Medical History Medical History Ankle fracture, left Anxiety Arm fracture Asthma as a child Depression Fingers fractured GERD (gastroesophageal reflux disease) Ovarian cyst Pseudoseizure Surgical History Surgical History History of hysterectomy Hx of cholecystectomy Family History Family History Mother Depression Hypertension Father Hypertension Grandparent Family history of cardiovascular disease Diabetes mellitus Family history of malignant neoplasm of breast Other Family history of allergic disorder Social History Social History Smoking status: Current every day smoker Alcohol intake: never Gender identity (if verbalized by the patient): Female Comments At the time of my signature, I reviewed and agree with the nursing past medical, surgical, social, and family history. There is no relevant family history pertinent to the patient complaint. Exam Const: General: cooperative, no acute distress, alert and awake Orientation/consciousness: oriented to person, oriented to place and oriented to time HENMT: Head: normal to inspection Ears: TM's normal bilaterally Mouth: Yes moist mucous membranes Throat: posterior oropharynx abnormal erythema Resp: Effort & Inspection: normal respiratory effort and able to speak in complete sentences Auscultation: clear to auscultation bilaterally, no crackles, no rales, no rhonchi and no wheezes Cardio: Palpation: normal PMI Rate: regular rate Rhythm: regular rhythm Heart sounds: S1 normal heart sound present and S2 normal heart sound present Neuro: General: oriented to person, oriented to place and oriented to time Cranial nerves: Yes CN's II-XII intact
[2024-02-22 14:25] LABS: EDINFLUASCREEN Negative; EDINFLUBSCREEN Negative
[2024-02-22 14:39] LABS: EDSTREPNEGPOS1 Negative
[2024-02-22] MEDS: IBUPROFEN 400 MG TABLET 800 MG PO (14:45)
== END 2024-02-22 15:10 | disposition home or self-care (01) ==
PROVIDERS: Emergency Provider Nurse Practitioner Family
DX: R03.0 Elevated blood-pressure reading, without diagnosis of hypertension (principal); J06.9 Acute upper respiratory infection, unspecified; Z20.822 Contact with and (suspected) exposure to COVID-19; F17.200 Nicotine dependence, unspecified, uncomplicated; K21.9 Gastro-esophageal reflux disease without esophagitis
CPT/HCPCS: 87081; 87426; 87804; 87880; 99213; A9270; G0463

== ENCOUNTER 2024-02-24 11:33 | Emergency (ER) | payer OTHER, SELFPAY ==
[2024-02-24 11:41] VITALS: BP 119/72; PULSE 102; RESP 20; TEMP 37.3; O2SAT 99
--- NOTE | 2024-02-24 11:42 | ED.URI ---
HPI - URI/Sore Throat General Chief Complaint: Upper Respiratory Infection Stated Complaint: Sore Throat Time Seen by Provider: 02/24/24 11:42 Source: patient, RN notes reviewed and old records reviewed Mode of arrival: ambulatory Limitations: no limitations History of Present Illness HPI Narrative: Patient presents with complaints of fever, sore throat, runny nose, body aches. She was seen for same 2 days ago. Negative for flu, COVID, strep at that time. Reports that she has been taking [id number] medications but is not feeling better, so she is coming back today to be reassessed. Voices no other concerns or complaints at this time0. Related Data Home Medications Medication Instructions Recorded Confirmed cetirizine 10 mg tablet (Zyrtec) 10 mg PO DAILY 09/14/23 02/24/24 Allergies Allergy/AdvReac Type Severity Reaction Status Date / Time alprazolam AdvReac Intermediate Anxiety Verified 02/24/24 11:47 cefaclor AdvReac Intermediate Nausea Verified 02/24/24 11:47 codeine AdvReac Intermediate Nausea and Verified 02/24/24 11:47 Vomiting lincomycin AdvReac Mild Didn't work Verified 02/24/24 11:47 nicardipine [Cardene] AdvReac Mild Didn't work Verified 02/24/24 11:47 Review of Systems Review of Systems: All systems reviewed & are unremarkable except as noted in HPI and below Constitutional: Constitutional: Reports as per HPI, Reports no additional constitutional complaints, Reports body ache(s), Reports chills and Reports fever(s) ENT: Reports system reviewed and no additional complaints, except as documented, Reports as per HPI, Reports nasal discharge and Reports sore throat Cardiovascular: Cardiovascular: Reports no additional cardiovascular complaints Respiratory: Respiratory: Reports as per HPI and Reports no additional respiratory complaints Gastrointestinal: Gastrointestinal: Reports no additional gastrointestinal complaints PMFSH Past Medical History Medical History Ankle fracture, left Anxiety Arm fracture Asthma as a child Depression Fingers fractured GERD (gastroesophageal reflux disease) Ovarian cyst Pseudoseizure Surgical History Surgical History History of hysterectomy Hx of cholecystectomy Family History Family History Mother Depression Hypertension Father Hypertension Grandparent Family history of cardiovascular disease Diabetes mellitus Family history of malignant neoplasm of breast Other Family history of allergic disorder Social History Social History Smoking status: Current every day smoker Alcohol intake: never Gender identity (if verbalized by the patient): Female Comments At the time of my signature, I reviewed and agree with the nursing past medical, surgical, social, and family history. There is no relevant family history pertinent to the patient complaint. Exam Const: General: cooperative, no acute distress, alert and awake Orientation/consciousness: oriented to person, oriented to place and oriented to time HENMT: Head: normal to inspection Ears: TM's normal bilaterally Face/Nose/Sinus: Nasal discharge present clear Mouth: Yes moist mucous membranes Throat: abnormal tonsil bilateral erythema and hypertrophy 2+ and posterior oropharynx abnormal erythema Resp: Effort & Inspection: normal respiratory effort and able to speak in complete sentences Auscultation: clear to auscultation bilaterally, no crackles, no rales, no rhonchi and no wheezes Cardio: Palpation: normal PMI Rate: regular rate Rhythm: regular rhythm Heart sounds: S1 normal heart sound present and S2 normal heart sound present Neuro: General: oriented to person, oriented to place and oriented to time Cranial nerves: Yes CN's II-XII intact bilaterally Psych
[2024-02-24 12:04] LABS: EDINFLUASCREEN Negative; EDINFLUBSCREEN Negative
[2024-02-24 12:21] LABS: EDSTREPNEGPOS1 Positive
== END 2024-02-24 12:28 | disposition home or self-care (01) ==
PROVIDERS: Emergency Provider Nurse Practitioner Family
DX: J02.0 Streptococcal pharyngitis (principal); Z20.822 Contact with and (suspected) exposure to COVID-19; F17.200 Nicotine dependence, unspecified, uncomplicated; K21.9 Gastro-esophageal reflux disease without esophagitis
CPT/HCPCS: 87426; 87804; 87880; 99213; G0463

== ENCOUNTER 2025-03-25 15:16 | Emergency (ER) | payer OTHER, SELFPAY ==
[2025-03-25 15:23] VITALS: BP 113/74; PULSE 91; RESP 18; TEMP 36.6; O2SAT 100
--- NOTE | 2025-03-25 15:30 | ED_ITS ---
HPI - Ear Problem General Stated complaint: pain in both ears Time Seen by Provider: 03/25/25 15:20 Source: patient Mode of arrival: ambulatory Limitations: no limitations History of Present Illness HPI Narrative: Patient is a 39-year-old female who presents with bilateral ear pain. Patient states she had a bug in her ear last night but thinks she got it out. After using hydrogen peroxide rinse ear hurts worse. Denies any fever, chills, nausea, vomiting, diarrhea. MD Complaint: ear pain Related Data Home Medications ?Medication ?Instructions ?Recorded ?Confirmed ?Last Taken ?Type cetirizine 10 mg tablet (Zyrtec) 10 mg PO DAILY 11/14/24 Unknown History Allergies Allergy/AdvReac Type Severity Reaction Status Date / Time alprazolam AdvReac Intermediate Anxiety Verified 03/25/25 15:42 cefaclor AdvReac Intermediate Nausea Verified 03/25/25 15:42 codeine AdvReac Intermediate Nausea and Verified 03/25/25 15:42 Vomiting lincomycin AdvReac Mild Didn't work Verified 03/25/25 15:42 nicardipine (Cardene) AdvReac Mild Didn't work Verified 03/25/25 15:42 Review of Systems Review of Systems: All systems reviewed & are unremarkable except as noted in HPI and below Constitutional: Constitutional: Denies body ache(s), Denies chills, Denies fever(s), Denies headache(s) and Denies malaise Eyes: Eyes: Denies blurry vision, Denies eye discharge and Denies irritation ENT: Reports otalgia, Denies headache(s), Denies nasal congestion, Denies nasal discharge and Denies sore throat Cardiovascular: Cardiovascular: Denies chest pain, Denies edema, Denies palpitations and Denies dyspnea on exertion Respiratory: Respiratory: Denies cough and Denies dyspnea on exertion Gastrointestinal: Gastrointestinal: Denies abdominal pain, Denies diarrhea, Denies nausea and Denies vomiting Musculoskeletal: Musculoskeletal: Denies back pain, Denies arthralgias and Denies muscle weakness Integumentary/Breasts: Skin/Breast: Denies pruritus and Denies rash Neurologic: Denies headache(s) Psychiatric: Psychiatric: Reports no additional psychiatric complaints Endocrine: Endocrine: Denies palpitations PMFSH Past Medical History Medical History Depression Anxiety Arm fracture Fingers fractured Ankle fracture, left Ovarian cyst GERD (gastroesophageal reflux disease) Asthma as a child Pseudoseizure Surgical History Surgical History History of hysterectomy Hx of cholecystectomy Family History Family History Mother Depression Hypertension Father Hypertension Grandparent Family history of cardiovascular disease Diabetes mellitus Family history of malignant neoplasm of breast Other Family history of allergic disorder Social History Social History Smoking status: Former smoker Alcohol intake: never Gender identity (if verbalized by the patient): Female Comments At time of signature, agree with nursing past medical, surgical, social and family history. There is no relevant family history pertinent to the presenting complaint? Exam Const: General: cooperative, healthy appearing, no acute distress and well nourished Nutritional Appearance: well nourished Orientation/consciousness: patient oriented x3 Limitations: no limitations HENMT: Head: normal to inspection, normocephalic and atraumatic Ears: hearing grossly normal bilaterally, TM's normal bilaterally, no periauricular adenopathy and Abnormal EAC present foreign body on the left (bug) Face/Nose/Sinus: Normal external nose present, Normal nares present, Normal nasal mucous membranes and turbinates present, No nasal discharge present, normal facial exam and sinuses nontender Face and sinus: normal facial exam and sinuses nontender Mouth: Yes Normal oral and palatal mucosa present, Yes lip normal, Yes tongue normal and Yes moist mucous membranes Throat: posterior oropharynx normal, tonsils normal and uvula midline Eyes: General: appearance normal, both eyes and all related structures Alignment and Position: alignment normal and position normal Eyelids: eyelids normal Pupils: Equal, round and reactive pupils present EOM: EOMs intact bilaterally Neck: Neck: normal visual inspection, full ROM, no lymphadenopathy and supple Chest: Chest palpation & inspection: normal inspection of the chest Resp: Effort & Inspection: normal respiratory effort and able to speak in complete sentences Auscultation: clear to auscultation bilaterally, no crackles, no rales, no rhonchi and no wheezes Cardio: Rate: regular rate Rhythm: regular rhythm Heart sounds: S1 normal heart sound present and S2 normal heart sound present Skin: General skin exam: normal color and no rashes or lesions noted Neuro: General: patient oriented x3 and moves all extremities Cranial nerves: Yes Equal, round and reactive pupils present Cognition (Neuro): normal cognition Speech: normal speech Gait exam (Neuro): Normal gait present Extrem: General: normal to inspection and full ROM Psych: Appearance: grossly normal and well kempt Mental Status: mental status grossly normal Speech and movement: Normal speech and movement present Course Course Emergency Course: Patient is aware of diagnosis, understands and agrees to treatment plan.? Anticipatory guidance given.? Patient agrees to follow-up as directed and is aware of reasons to seek care at the emergency department.? Portions of this record may have been created with voice recognition software? Level of Care: Express Care Visit Vital Signs Vital signs: Vital Signs Temperature 36.6 C 03/25/25 15:23 Pulse Rate 91 03/25/25 15:23 Respiratory Rate 18 03/25/25 15:23 Blood Pressure 113/74 03/25/25 15:23 Pulse Oximetry 100 03/25/25 15:23 Oxygen Delivery Room Air 03/25/25 15:23 Temperature 36.6 C 03/25/25 15:23 Pulse Rate 91 03/25/25 15:23 Respiratory Rate 18 03/25/25 15:23 Blood Pressure 113/74 03/25/25 15:23 Pulse Oximetry 100 03/25/25 15:23 Oxygen Delivery Room Air 03/25/25 15:23 Reviewed Procedures FB Removal Ear Foreign Body #1: Foreign Body Removal Date: 03/25/25 Foreign Body Removal Time: 16:00 Location: ear canal (L) Foreign Body Suspected: insect TM intact pre-procedure: yes Foreign Body Removed: no Foreign Body Removal Technique: forceps (alligator after irrigation) Tympanic Membrane Intact Post Procedure: Yes Patient Tolerated Procedure: well Complications: pain Additional Comments: Procedure explained patient. Verbal consent obtained. Unable to remove insect. Transferring to Dr. Vega with ENTs office for removal Medical Decision Making MDM Narrative Medical decision making narrative: Called Dr. Vega with ENT after failed attempt of irrigating bug out and using alligator forceps. Patient was having pain and bug is against tympanic membrane and not moving. Dr. Vega agree to have her come straight to his office for removal. Pt well hydrated appearing, in no respiratory distress, hemodynamically stable. Recommend supportive care. The patient is stable at time of discharge the clinical impression was discussed and the patient was given the opportunity to ask questions, which were addressed as completely as possible given the information available at present. Anticipatory guidance and return to care precautions were discussed and the importance of primary care follow-up was stressed and encouraged. The patient voiced understanding of the plan, indications to return, and the need for follow-up. Exam findings show no acute concerns or changes Patient is appropriate for outpatient treatment and follow-up. Differential diagnosis considered: otitis media, otitis externa, otitis effusion, foreign body, cerumen impaction, viral syndrome Medical Records Medical records reviewed: Yes I reviewed the external patient's medical records. Vital Signs Vital Signs: Vital Signs Temperature 36.6 C 03/25/25 15:23 Pulse Rate 91 03/25/25 15:23 Respiratory Rate 18 03/25/25 15:23 Blood Pressure 113/74 03/25/25 15:23 Pulse Oximetry 100 03/25/25 15:23 Oxygen Delivery Room Air 03/25/25 15:23 Temperature 36.6 C 03/25/25 15:23 Pulse Rate 91 03/25/25 15:23 Respiratory Rate 18 03/25/25 15:23 Blood Pressure 113/74 03/25/25 15:23 Pulse Oximetry 100 03/25/25 15:23 Oxygen Delivery Room Air 03/25/25 15:23 Discharge Plan Discharge Clinical Impression: Foreign body in ear Qualifiers: Encounter type: initial encounter Laterality: left Qualified Code(s): T16.2XXA - Foreign body in left ear, initial encounter Patient Disposition: Home Condition: Stable Instructions: Ear Foreign Body (ED) Additional Instructions: Go straight to Dr. Vega office in [facility]. Patient Language: Albanian Prescriptions: No Action cetirizine [Zyrtec] 10 mg Tablet 10 mg PO DAILY albuterol sulfate [ProAir HFA] 90 mcg/actuation HFA aerosol inhaler 2 puff INHALATION Q4-6H PRN (Reason: shortness of breath or wheezing) Qty: 18 0RF (DME) BreatheRite MDI Spacer Spacer See Rx Instructions .ROUTE .MEDSUPPLY Qty: 1 0RF Rx Instructions: As directed albuterol sulfate [Ventolin HFA] 90 mcg/actuation HFA aerosol inhaler 2 puff inhalation QID PRN (Reason: shortness of breath or wheezing) Qty: 8.5 0RF citalopram 20 mg tablet See Rx Instructions .ROUTE .COMPLEX Qty: 90 4RF Dose Instruction: TAKE 1 TABLET BY MOUTH EVERY DAY Rx Instructions: TAKE 1 TABLET BY MOUTH EVERY DAY omeprazole 20 mg capsule,delayed release(DR/EC) See Rx Instructions .ROUTE .COMPLEX Qty: 90 4RF Dose Instruction: TAKE 1 CAPSULE BY MOUTH EVERY DAY Rx Instructions: TAKE 1 CAPSULE BY MOUTH EVERY DAY hydroxyzine HCl 25 mg tablet 25 mg PO BID Qty: 180 0RF Rx Instructions: DUE FOR APPOINTMENT IN [facility] Follow-up/Referrals: PHYSICIAN,QUALITY IMPROVEMENT COORDINATOR (RN) [Primary Care Provider, Internal Medicine] Time of Disposition: 16:25
== END 2025-03-25 16:05 | disposition home or self-care (01) ==
PROVIDERS: Emergency Provider Nurse Practitioner Family
DX: T16.2XXA Foreign body in left ear, initial encounter (principal); W44.F4XA Insect entering into or through a natural orifice, initial encounter; K21.9 Gastro-esophageal reflux disease without esophagitis; F41.9 Anxiety disorder, unspecified; F32.A Depression, unspecified
CPT/HCPCS: 69200; 99212; G0463

== ENCOUNTER 2025-03-26 18:25 | Emergency (ER) | payer OTHER, SELFPAY ==
[2025-03-26 18:28] VITALS: BP 139/85; PULSE 83; RESP 18; TEMP 36.7; O2SAT 99
--- NOTE | 2025-03-26 19:35 | ED.GENADULT ---
HPI - General Adult General Chief complaint: Ear Stated complaint: foreign body in Left ear Time Seen by Provider: 03/26/25 18:35 History of Present Illness HPI narrative: This is a 39-year-old female presenting with a bug in her ear. She was seen in urgent care yesterday and referred to an ENT but did not make it before they closed. Related Data Home Medications ?Medication ?Instructions ?Recorded ?Confirmed ?Last Taken ?Type cetirizine 10 mg tablet (Zyrtec) 10 mg PO DAILY 09/14/23 11/14/24 Unknown History Allergies Allergy/AdvReac Type Severity Reaction Status Date / Time alprazolam AdvReac Intermediate Anxiety Verified 03/26/25 18:27 cefaclor AdvReac Intermediate Nausea Verified 03/26/25 18:27 codeine AdvReac Intermediate Nausea and Verified 03/26/25 18:27 Vomiting lincomycin AdvReac Mild Didn't work Verified 03/26/25 18:27 nicardipine (Cardene) AdvReac Mild Didn't work Verified 03/26/25 18:27 PMFSH Past Medical History Medical History Depression Anxiety Arm fracture Fingers fractured Ankle fracture, left Ovarian cyst GERD (gastroesophageal reflux disease) Asthma as a child Pseudoseizure Surgical History Surgical History History of hysterectomy Hx of cholecystectomy Family History Family History Mother Depression Hypertension Father Hypertension Grandparent Family history of cardiovascular disease Diabetes mellitus Family history of malignant neoplasm of breast Other Family history of allergic disorder Social History Social History Smoking status: Former smoker Alcohol intake: never Gender identity (if verbalized by the patient): Female Exam Narrative: Patient was evaluated after the bucket been flushed out of her ear by nursing staff. APPEARANCE: No apparent distress. Head: Minor excoriations to the left ear canal without evidence of infection. No damage to the tympanic membrane. No bugs. EYES: EOMI, NOSE: Atraumatic NECK: Trachea midline RESPIRATORY: No increased rate of breathing CARDIOVASCULAR: RRR, ABDOMINAL: Non-distended MUSCULOSKELETAl: No obvious deformities NEURO: Alert. Moving 4/4 extremities SKIN:: Warm, dry. Normal color PSYCHIATRIC: Normal affect Course Vital Signs Vital signs: Vital Signs Temperature 98.1 F 03/26/25 18:28 Pulse Rate 83 03/26/25 18:28 Respiratory Rate 18 03/26/25 18:28 Blood Pressure 139/85 03/26/25 18:28 Pulse Oximetry 99 03/26/25 18:28 Oxygen Delivery Room Air 03/26/25 18:28 Temperature 98.1 F 03/26/25 18:28 Pulse Rate 83 03/26/25 18:28 Respiratory Rate 18 03/26/25 18:28 Blood Pressure 139/85 03/26/25 18:28 Pulse Oximetry 99 03/26/25 18:28 Oxygen Delivery Room Air 03/26/25 18:28 Medical Decision Making MDM Narrative Medical decision making narrative: -Course: Patient presented with a bug in her ear that was cleared by nursing staff. Examination of the TM showed no significant abnormality. Patient be discharged. Given return precautions for your pain signs of infection. Vital Signs Vital Signs: Vital Signs Temperature 98.1 F 03/26/25 18:28 Pulse Rate 83 03/26/25 18:28 Respiratory Rate 18 03/26/25 18:28 Blood Pressure 139/85 03/26/25 18:28 Pulse Oximetry 99 03/26/25 18:28 Oxygen Delivery Room Air 03/26/25 18:28 Temperature 98.1 F 03/26/25 18:28 Pulse Rate 83 03/26/25 18:28 Respiratory Rate 18 03/26/25 18:28 Blood Pressure 139/85 03/26/25 18:28 Pulse Oximetry 99 03/26/25 18:28 Oxygen Delivery Room Air 03/26/25 18:28 Discharge Plan Discharge Clinical Impression: Foreign body Patient Disposition: Home Condition: Stable Instructions: Antibiotic Form, Ear Foreign Body (ED) Additional Instructions: Please follow-up with the ENT listed below as needed. If you develop severe pain in her ear signs of infection he can return for re-evaluation. Patient Language: Slovak Prescriptions: No Action cetirizine [Zyrtec] 10 mg Tablet 10 mg PO DAILY (DME) BreatheRite MDI Spacer Spacer See Rx Instructions .ROUTE .MEDSUPPLY Qty: 1 0RF Rx Instructions: As directed albuterol sulfate [Ventolin HFA] 90 mcg/actuation HFA aerosol inhaler 2 puff inhalation QID PRN (Reason: shortness of breath or wheezing) Qty: 8.5 0RF citalopram 20 mg tablet See Rx Instructions .ROUTE .COMPLEX Qty: 90 4RF Dose Instruction: TAKE 1 TABLET BY MOUTH EVERY DAY Rx Instructions: TAKE 1 TABLET BY MOUTH EVERY DAY omeprazole 20 mg capsule,delayed release(DR/EC) See Rx Instructions .ROUTE .COMPLEX Qty: 90 4RF Dose Instruction: TAKE 1 CAPSULE BY MOUTH EVERY DAY Rx Instructions: TAKE 1 CAPSULE BY MOUTH EVERY DAY hydroxyzine HCl 25 mg tablet 25 mg PO BID Qty: 180 0RF Rx Instructions: DUE FOR APPOINTMENT IN [facility] Follow-up/Referrals: PHYSICIAN,CERTIFIED INDUSTRIAL HYGIENIST [Primary Care Provider, Internal Medicine]
== END 2025-03-26 20:07 | disposition home or self-care (01) ==
PROVIDERS: Emergency Provider Emergency Medicine
DX: T16.2XXA Foreign body in left ear, initial encounter (principal); K21.9 Gastro-esophageal reflux disease without esophagitis; F41.9 Anxiety disorder, unspecified; F32.A Depression, unspecified; Z90.49 Acquired absence of other specified parts of digestive tract; Z90.710 Acquired absence of both cervix and uterus; Z87.891 Personal history of nicotine dependence; Z79.899 Other long term (current) drug therapy; W44.F4XA Insect entering into or through a natural orifice, initial encounter
CPT/HCPCS: 99281; 99282

== ENCOUNTER → 2025-04-01 12:29 | Outpatient (CLI) | payer OTHER, SELFPAY ==
--- NOTE | ~2025-04-01 | XR_ITS ---
Examination: XR chest 2V Clinical History: FORMER SMOKER, NO COMPLAINTS Comparison: 04/30/2024 Technique: PA and Lateral Findings: Cardiomediastinal silhouette normal size and configuration. Lungs clear. No acute bony abnormality. IMPRESSION: 1. No acute cardiopulmonary findings. Reviewed, dictated and finalized at location R.
== END ==
LOC: EXPCRAD 12:31
PROVIDERS: PCP Emergency Medicine; Visit Provider Emergency Medicine
DX: Z12.2 Encounter for screening for malignant neoplasm of respiratory organs (principal); Z87.891 Personal history of nicotine dependence
CPT/HCPCS: 71046